=== PATIENT | female | born 1940 | race Caucasian/White ===

== ENCOUNTER → 2018-02-20 | Outpatient (CLI) | payer OTHER ==
--- NOTE | 2018-02-16 08:31 | MH ---
cc: Antonino Farr MD DATE OF ADMISSION: 02/20/2018 ADMISSION DIAGNOSIS: Cloudy posterior capsule, left eye. HISTORY OF PRESENT ILLNESS: This 77-year-old white female is coming through [facility] for the purpose of a YAG laser posterior capsulotomy of the left eye. She is status post bilateral cataract surgery with intraocular lens implants and noted decreased visual acuity in her left eye and was found to have a cloudy posterior capsule. She has elected to have a YAG laser posterior capsulotomy at this time. 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 She has hypertension, no other stated medical illnesses. PAST SURGICAL HISTORY: Bilateral knee arthroscopy and left breast benign cyst removal. DAILY MEDICATIONS: Include: 1. Lisinopril. 2. Atorvastatin. 3. Many vitamins. ALLERGIES: SHE DOES NOT HAVE ANY KNOWN MEDICATION ALLERGIES. SOCIAL HISTORY: She smoked 30 years ago and drinks 2 alcoholic beverages per day. FAMILY HISTORY: Positive for cataracts; she does not say which family members. REVIEW OF SYSTEMS: HEAD: Patient denies severe headaches, dizziness or recent head injury. EARS: Patient denies hearing loss, ear pain, discharge or ringing in the ears. NOSE: Patient denies nasal discharge, obstruction or frequent colds. MOUTH AND THROAT: Patient denies soreness of the mouth or tongue, bleeding gums, trouble swallowing, changes in voice or sore throat. NECK: Patient denies neck pain or swelling, limitation of neck movement or neck injury. CARDIOPULMONARY SYSTEM: Patient denies shortness of breath, orthopnea, chronic cough, sputum production, hemoptysis, chest pain, wheezing, palpitations or light-headedness. GI SYSTEM: Patient denies poor appetite, nausea, vomiting, abdominal pain, ulcers, hemorrhoids or change in bowel habits. SYSTEM: The patient denies urinary frequency, dysuria, change in urine color. NERVOUS SYSTEM: Patient denies convulsions, vertigo, stroke, numbness or weakness. REVIEW OF SYSTEMS: OCULAR EXAM: Best corrected visual acuity is 20/20 in the right eye and 20/50 -2 in the left. Visual altamirano are full to confrontation testing. Extraocular muscle exam reveals full versions with orthophoria at distance and near. Pupils are 3 mm, equal, round, and reactive to light, without afferent defect. Anterior segment examination reveals a posterior chamber intraocular lens in place bilaterally with a cloudy posterior capsule in the left eye. Intraocular pressure of 16 in the right eye and 18 in the left by applanation tonometry. Dilated fundus exam revealed sharp discs with cup-to-disc ratio of 0.3 bilaterally. The macula is clear bilaterally. Asteroid hyalosis is present in the right eye. IMPRESSION: 1. Cloudy posterior capsule, left eye. 2. Pseudophakia both eyes. 3. Asteroid hyalosis, right eye. PLAN: YAG laser posterior capsulotomy of the left eye through [facility]. MD ODELL Trotter/ALINA , 02:26 PM , 02:56 PM
[~2018-02-20] MED LIST: ATOR10 PO; AZIT500I PO; BALANCED SALT SOLN OPHT IRRIG 15 ML BTL ONE; FLON0.053; FLUOROMETHOLONE 0.25% OPHT SUSP 5 ML BTL ONE; GLUC500C56 PO; LISI10TA PO; PHENYLEPHRINE HCL 2.5% OPTH SOLN 2 ML BTL ONE; PROPARACAINE HCL 0.5% OPHT SOLN 15 ML BTL ONE; TROPICAMIDE 1% OPHT SOLN 15 ML BTL ONE
--- NOTE | 2018-02-20 13:09 | MP ---
cc: Antonino Farr MD DATE OF OPERATION: 02/20/2018 POSTOPERATIVE DIAGNOSIS: Cloudy posterior capsule left eye. OPERATION: YAG laser posterior capsulotomy, left eye. SURGEON: Antonino Farr MD ANESTHESIA: Topical. COMPLICATIONS: None. INDICATIONS: See history and physical previously dictated. PROCEDURE: The patient arrived at [facility]. Blood pressure was 124/70, pulse 60, respirations 20. A drop of Alphagan P and Mydriacyl were instilled in the left eye. The patient was seated at the YAG laser. A drop of Alcaine was instilled in the left eye and a YAG laser posterior capsulotomy lens was placed on the anterior surface of the left cornea. YAG laser posterior capsulotomy was carried out utilizing 40 exposures of 1.6 millijoules. An adequate opening was seen following the procedure. A drop of Alphagan P was instilled topically. The patient was given a prescription for a topical steroid to be used four times per day and has an appointment for follow up on the first postoperative day in my office. The patient left the [facility] in satisfactory condition. Antonino Farr MD PROTOCOL OFFICER/SB , 12:42 PM , 01:08 PM
== END ==
LOC: PHSDC 11:12
PROVIDERS: ATTEND Ophthalmology
DX: H26.492 Other secondary cataract, left eye (principal); H43.21 Crystalline deposits in vitreous body, right eye; I10 Essential (primary) hypertension; Z87.891 Personal history of nicotine dependence; Z96.1 Presence of intraocular lens